=== PATIENT | female | born 1980 | race Two or more races ===

== ENCOUNTER 2021-03-06 17:18 | Outpatient (AMBR) | payer MEDICAID, SELFPAY ==
--- NOTE | 2021-02-06 18:57 | PT.ODAYNRPT ---
PT Outpatient Daily Note Date of Service: 02/06/21 OP Daily Note Visit Reasons: back pain Outpatient Physical Therapy Treatment Date: 02/06/21 Subjective: Pt c/o pain over L5 on L today and pain radiated down the posterior thigh with foam roller therex that put pressure on that area. Objective: See f/S for therex MT: STM L/S L5 region L>R x10' Assessment: The L side of L5-S1 and PSIS region is very TTP with manual therapy and radiates pain down posterior thigh which is not consistent with sciatica. This might be myofascial pain with radiation. Plan: Continue per POC Length of Time (minutes) of Treatment: 30 Minutes Office Procedures PT Procedures PT Date of Service: 02/06/21 Therapeutic Exercise 15 minutes: Yes Manual Safe [employer]osit Box Rental Clerk 15 minutes: Yes
--- NOTE | 2021-02-13 18:40 | PT.ODAYNRPT ---
PT Outpatient Daily Note Date of Service: 02/13/21 OP Daily Note Visit Reasons: back pain Outpatient Physical Therapy Treatment Date: 02/13/21 Subjective: Less L/S pain today Objective: See f/S for therex MT: STM L/S L5 region L>R x10' Mechanical traction x7' at 40 lbs Assessment: The L side of L5-S1 and PSIS region is less TTP with manual therapy today. Less tissue irritability with therex today. Plan: Continue per POC Length of Time (minutes) of Treatment: 30 Minutes Office Procedures PT Procedures PT Date of Service: 02/06/21 Therapeutic Exercise 15 minutes: Yes Manual Sales Training Representative 15 minutes: Yes PT Procedures PT Date of Service: 02/13/21 Therapeutic Exercise 15 minutes: Yes Manual Sales Training Representative 15 minutes: Yes
--- NOTE | 2021-02-15 18:38 | PTNOTE_ITS ---
PT Outpatient Daily Note Date of Service: 02/15/21 OP Daily Note Visit Reasons: back pain Outpatient Physical Therapy Treatment Date: 02/15/21 Subjective: Less L/S pain today Objective: See f/S for therex Mechanical traction x7' at 40 lbs Assessment: Good response to mechanical traction and therex to reduce LBP. Plan: Continue per POC Length of Time (minutes) of Treatment: 30 Minutes Office Procedures PT Procedures PT Date of Service: 02/06/21 Therapeutic Exercise 15 minutes: Yes Manual [employer] 15 minutes: Yes PT Procedures PT Date of Service: 02/15/21 Therapeutic Exercise 30 minutes: Yes PT Procedures PT Date of Service: 02/13/21 Therapeutic Exercise 15 minutes: Yes Manual [employer] 15 minutes: Yes
--- NOTE | 2021-02-27 18:59 | PT.ODAYNRPT ---
PT Outpatient Daily Note Date of Service: 02/27/21 OP Daily Note Visit Reasons: back pain Outpatient Physical Therapy Treatment Date: 02/27/21 Subjective: Less L/S pain today Objective: See f/S for therex Mechanical traction x7' at 40 lbs Assessment: Good response to mechanical traction and therex to reduce LBP. Plan: Continue per POC Length of Time (minutes) of Treatment: 30 Minutes Office Procedures PT Procedures PT Date of Service: 02/06/21 Therapeutic Exercise 15 minutes: Yes Manual Medical Office Specialist 15 minutes: Yes PT Procedures PT Date of Service: 02/15/21 Therapeutic Exercise 30 minutes: Yes PT Procedures PT Date of Service: 02/13/21 Therapeutic Exercise 15 minutes: Yes Manual Medical Office Specialist 15 minutes: Yes PT Procedures PT Date of Service: 02/27/21 Therapeutic Exercise 30 minutes: Yes
--- NOTE | 2021-03-06 18:44 | PT.ODAYNRPT ---
PT Outpatient Daily Note Date of Service: 03/06/21 OP Daily Note Visit Reasons: back pain Outpatient Physical Therapy Treatment Date: 03/06/21 Subjective: Less L/S pain recently, not really hurting today Objective: See f/S for therex Mechanical traction x7' at 40 lbs Assessment: Good response to mechanical traction and therex to reduce LBP. Plan: Continue per POC Length of Time (minutes) of Treatment: 30 Minutes Office Procedures PT Procedures PT Date of Service: 02/06/21 Therapeutic Exercise 15 minutes: Yes Manual [employer]enger [employer] Inspector 15 minutes: Yes PT Procedures PT Date of Service: 02/15/21 Therapeutic Exercise 30 minutes: Yes PT Procedures PT Date of Service: 03/06/21 Therapeutic Exercise 30 minutes: Yes PT Procedures PT Date of Service: 02/13/21 Therapeutic Exercise 15 minutes: Yes Manual [employer] Inspector 15 minutes: Yes PT Procedures PT Date of Service: 02/27/21 Therapeutic Exercise 30 minutes: Yes
== END 2021-03-07 23:59 | disposition home or self-care (01) ==
PROVIDERS: PCP Internal Medicine; Referring Provider Internal Medicine; Visit Provider Internal Medicine
DX: M54.5 Low back pain (principal)
CPT/HCPCS: 97110; 97140

== ENCOUNTER 2024-08-19 08:20 | Day surgery (SDC) | payer MEDICAID, SELFPAY ==
[2024-08-18 11:39] LABS: HCG Qualitative,Urine Negative
[2024-08-18 13:14] VITALS: BMI 24.1
[2024-08-19] VITALS (11 sets, daily range): BP systolic 105–132; BP diastolic 70–87; PULSE 86–100; RESP 10–20; TEMP 36.6; O2SAT 94–100; BMI 25.0
[2024-08-19] MEDS: fentaNYL CIT INJ 50 mCg/ML AMP 2ML (ASD USE ONLY) IV (09:58)
[2024-08-19] MEDS: DiphenhydrAMINE INJ 50 MG/ML VIAL 25 MG IV (09:58)
[2024-08-19] MEDS: MIDAZOLAM INJ 1 MG/ML VIAL 2 ML (ASD USE ONLY) 2 MG IV (09:58)
[2024-08-19] MEDS: SIMETHICONE 40 MG/0.6 ML ORAL SYRINGE PO (10:10)
[2024-08-19] MEDS: ONDANSETRON INJ 2 MG/ML INJ 2 ML 4 MG IV (10:17)
--- NOTE | 2024-08-19 11:21 | SUR.PHASEII ---
1050 Pt more awake and alert. Denies pain or N/V. Abd soft. Pt passing flatus. Parrish PO fluids. 1115 Pt assessment unchanged. No complaints. Amb with steady gait. Able to dress self. Pt and Domingo, given dc instructions. Both state understanding. Pt meets dc criteria-to home.
== END 2024-08-19 11:15 | disposition home or self-care (01) ==
PROVIDERS: PCP Internal Medicine; Referring Provider Internal Medicine Gastroenterology; Visit Provider Internal Medicine Gastroenterology
PROC: 0DBE8ZX Excision of Large Intestine, Via Natural or Artificial Opening Endoscopic, Diagnostic (ICD-10-PCS; CPT 45380; principal; 2024-08-19 08:30)
DX: K64.1 Second degree hemorrhoids (principal); Z87.19 Personal history of other diseases of the digestive system
CPT/HCPCS: 45380; 81025; A4217; A4649; J1200; J2250; J2405; J3010; A9270

== ENCOUNTER 2025-01-04 08:00 | Day surgery (SDC) | payer MEDICAID, SELFPAY ==
[2024-12-31 14:19] LABS: HCG Qualitative,Urine Negative
[2025-01-03 13:19] VITALS: BMI 24.1
[2025-01-04] VITALS (7 sets, daily range): BP systolic 117–130; BP diastolic 72–78; PULSE 81–87; RESP 14–19; TEMP 36.6–36.7; O2SAT 95–100; BMI 25.6
[2025-01-05] MEDS: MIDAZOLAM INJ 1 MG/ML VIAL 2 ML (ASD USE ONLY) 2 MG IV (07:33)
[2025-01-05] MEDS: fentaNYL CIT INJ 50 mCg/ML AMP 2ML (ASD USE ONLY) IV (07:33)
[2025-01-05] MEDS: DiphenhydrAMINE INJ 50 MG/ML VIAL 25 MG IV (07:33)
[2025-01-05] MEDS: RINGERS LACTATED 1000 ML 1,000 ML 20 ML IV (07:34)
== END 2025-01-04 10:45 | disposition home or self-care (01) ==
PROVIDERS: PCP Internal Medicine; Referring Provider Internal Medicine Gastroenterology; Visit Provider Internal Medicine Gastroenterology
PROC: (CPT 43239; principal; 2025-01-04 09:45)
DX: K29.70 Gastritis, unspecified, without bleeding (principal); K29.50 Unspecified chronic gastritis without bleeding
CPT/HCPCS: 43239; 81025; A4649; J1200; J2250; J3010; J7120